=== PATIENT | female | born 1935 | race Caucasian/White ===

== ENCOUNTER 2018-04-16 08:49 | Day surgery (SDC) | payer MEDICARE ==
[2018-04-11 13:22] VITALS: BMI 29.5
[2018-04-16] MEDS ORDERED: Lidocaine Hydrochloride 10 ML INJ ONE (09:53)
[2018-04-16] MEDS ORDERED: Iohexol 240 (50 ml) ONE (09:56)
[2018-04-16] MEDS ORDERED: HEPARIN-NS 5,000 UNITS/500 ML 5,000 UNIT/500 ML BAG IV ONE (09:56)
[2018-04-16] MEDS ORDERED: ceFAZolin 1 gm FROZEN Premix 2 GM/100 ML ML IVPB ONE (12:05)
[2018-04-16] MEDS ORDERED: Propofol 10 mg/ml Inj (20 ML) ONE (12:21)
[2018-04-16] MEDS ORDERED: Midazolam 2 MG/2 ML VIAL ONE (12:21)
[2018-04-16] MEDS ORDERED: Oxycodone/Acetaminophen 5/325 mg Tab PO PRN (12:41)
[2018-04-16] MEDS ORDERED: HYDROmorphone 0.5 mg/0.5 ml ISec IVP PRN (12:54)
[2018-04-16] MEDS ORDERED: Sodium Chloride 0.9% 1,000 ML IV SCH (13:00)
[2018-04-16 13:56] VITALS: RESP 18; O2SAT 96
[2018-04-16 15:06] VITALS: BP 133/64; PULSE 79; TEMP 97.7
--- NOTE | 2018-04-16 17:23 | RAD ---
Date of service: 04/16/2018 PROCEDURE: Intraoperative Fluoroscopy. HISTORY: DVT RIGHT LEG FINDINGS: Fluoroscopic assistance was provided for IVC filter placement. Please refer to the operative report from [facility]. Total fluoroscopic time (continuous mode) utilized during the procedure 48.6 (seconds). Dose report: DLP [id number] (mGy/m2)
--- NOTE | 2018-04-16 23:10 | OP ---
PROCEDURE DATE: 04/16/2018 PREOPERATIVE DIAGNOSIS: Extensive deep vein thrombosis of the right lower extremity. POSTOPERATIVE DIAGNOSIS: Extensive deep vein thrombosis of the right lower extremity. PROCEDURE PERFORMED: Inferior vena cava filter. SURGEON: Armen Mckenzie MD ANESTHESIA: General. ESTIMATED BLOOD LOSS: 20 mL. POSTOPERATIVE CONDITION: Stable. INDICATIONS FOR SURGERY: This is an 82-year-old female with an extensive deep vein thrombosis of the right lower extremity. She presents now for placement of an inferior vena cava filter. DESCRIPTION OF PROCEDURE: The patient was taken to the operating room, IV sedation was administered. The right groin was prepped and draped. Local anesthesia was infiltrated and the right femoral vein was easily cannulated. A guidewire was inserted into the vena cava, and a venacavogram was taken. A vena cava filter was introduced to the level of L2-L3 and released. The filter was withdrawn and a small skin bleeder was repaired. The remainder of bleeding was controlled with pressure. The patient tolerated the procedure well and returned to recovery room in stable condition. Armen Mckenzie MD
== END 2018-04-16 14:50 | disposition home or self-care (01) ==
LOC: C.SDS 08:49
PROVIDERS: ATTEND Surgery
DX: I82.411 Acute embolism and thrombosis of right femoral vein (principal)
CPT/HCPCS: 37191; C1769; C1880; J0690; J2250; J2704; J3010